=== PATIENT | female | born 1945 | race Caucasian/White ===

== ENCOUNTER → 2016-12-26 | Outpatient (CLI) | payer MEDICARE ==
[~2016-12-26] MED LIST: ALBUTEROL2 PUFFS/17 IN; AMOXICILLIN 50500 MG PO; CIPRO 500MG TA500 MG PO; FLAGYL500 MG PO; GENTAMICIN O5 ML/BOT OP; LISINOPRIL 5MG T5 MG; LISINOPRIL/HCTZ1 TA3 PO; MELOXICAM15 MG PO; TIZANIDINE HCL PO; VICODIN 5/500 T1 TAB PO
[2016-12-26 18:53] LABS: HEMOGLOBIN 13.9 g/dL (12.2-16.2); LYMPH # 2.2 K/mm3 (0.7-4.5); LYMPH % 25.9 % (10-50.0)
[2016-12-26 19:50] LABS: BUN 23 mg/dL (7-18)
[2016-12-26 19:53] LABS: GFR (ESTIMATED) 49 ML/MIN (59-)
== END ==
LOC: LAB 18:03
PROVIDERS: Nurse Practitioner Family
DX: I10 Essential (primary) hypertension (principal)